=== PATIENT | female | born 1980 | race Caucasian/White ===

== ENCOUNTER 2019-06-15 10:40 | Emergency (ER) | payer OTHER ==
--- NOTE | 2019-06-15 10:48 | PDOC ---
History of Present Illness - General Chief Complaint: Laceration Stated Complaint: RIGHT FOOT LACERATION Time Seen by Provider: 06/15/19 10:42 History Source: Patient Exam Limitations: No Limitations - History of Present Illness Initial Comments: 06/15/19 10:43 38 y/o female with cut to top of right foot, dropped Pyrex bowl while making breakfast today onto foot, cut it. Bleeding. Able to walk on it. UTD with Tetanus from prior injury 3 weeks ago. Painful. Timing/Duration: reports: just prior to arrival Severity: Yes: mild Past History - Travel Traveled outside of the country in the last 30 days: No - Past Medical History Allergies/Adverse Reactions: Allergies Allergy/AdvReac Type Severity Reaction Status Date / Time No Known Allergies Allergy Verified 06/15/19 10:41 Home Medications: Ambulatory Orders NK [No Known Home Medication] 06/15/19 Review of Systems - Review of Systems Able to Perform ROS?: Yes Is the patient limited [place] proficient: No Constitutional: No: Chills, Fever Respiratory: No: Cough, Shortness of Breath Musculoskeletal: No: Muscle Pain, Neck Pain All Other Systems: Reviewed and Negative *Physical Exam - Physical Exam General Appearance: Yes: Nourished, Appropriately Dressed. No: Apparent Distress HEENT: positive: EOMI, JÚNIOR, Normal Voice Neck: positive: Supple Respiratory/Chest: positive: Lungs Clear, Normal Breath Sounds. negative: Chest Tender Cardiovascular: positive: Regular Rhythm, Regular Rate, S1, S2. negative: Edema , JVD, Murmur Vascular Pulses: Femoral (R): 4+, Femoral (L): 4+, Carotid (R): 4+, Carotid (L) : 4+, Dorsalis-Pedis (R): 4+, Doralis-Pedis (L): 4+ Gastrointestinal/Abdominal: positive: Flat, Soft Lymphatic: negative: Adenopathy, Tenderness, Other Musculoskeletal: positive: Normal Inspection. negative: CVA Tenderness Extremity: positive: Normal Capillary Refill, Normal Inspection, Normal Range of Motion. negative: Tender, Calf Tenderness Integumentary: positive: Normal Color, Dry, Warm, Other (right dorsum of foot with 2 cm laceration with bleeding controlled, mild tenderness, no swelling or ecchymosis, full ROM). negative: Swelling, Ecchymosis, Bruising Neurologic: positive: cake icer II-XII NML intact, Fully Oriented, Alert, Normal Mood/ Affect, Normal Response, Motor Strength 5/5 Procedures - Laceration/Wound Repair Right Dorsal Foot Wound Length: to 2.5 cm Wound Explored: clean Wound's Depth, Shape: superficial Irrigated w/ Saline: Yes Wound Repaired With: Steri-strips (1), Dermabond Sterile Dressing Applied: Yes Progress: 06/15/19 10:47 Offered x-ray right foot but patient refused, risks and benefits explained to pt. Progress Note - Progress Note Progress Note: Superficial laceration to foot Dermabond applied Refused x-ray, risks and benefits explained to pt *DC/Admit/Observation/Transfer Diagnosis at time of Disposition: Laceration of foot Qualifiers: Encounter type: initial encounter Laterality: right Qualified Code(s): S91.311A - Laceration without foreign body, right foot, initial encounter - Discharge Dispostion Disposition: HOME Condition at time of disposition: Stable Decision to Admit order: No - Referrals - Patient Instructions Printed Discharge Instructions: DI for Laceration Repair With Dermabond Additional Instructions: Keep dry for 48 hrs Tylenol for pain If worsen return to ER - Post Discharge Activity
[2019-06-15 10:57] VITALS: BP 104/72; PULSE 57; TEMP 98.3; BMI 19.8
== END 2019-06-15 11:00 | disposition home or self-care (01) ==
LOC: FER 10:40
PROC: 0HQMXZZ Repair Right Foot Skin, External Approach (ICD-10-PCS; principal; 2019-06-15)
DX: S91.311A Laceration without foreign body, right foot, initial encounter (principal); W20.8XXA Other cause of strike by thrown, projected or falling object, initial encounter; Y93.9 Activity, unspecified; Y92.000 Kitchen of unspecified non-institutional (private) residence as the place of occurrence of the external cause
CPT/HCPCS: 99282-25